=== PATIENT | female | born 1955 | race Caucasian/White ===

== ENCOUNTER 2023-11-12 13:23 | Emergency (ER) | payer OTHER ==
[~2023-11-12] VITALS: Ht 170.2 cm; Wt 61.0 kg
[2023-11-12 15:30] VITALS: PULSE 78; RESP 20; TEMP 98.9; O2SAT 94
[2023-11-12] MEDS: ETOMIDATE (2MG/ML) 20ML VIAL IV ONE (15:55)
[2023-11-12] MEDS ORDERED: HYDR-4902 PO (16:44)
[2023-11-12 17:00] VITALS: BP 163/91; PULSE 67; RESP 16; O2SAT 96
== END 2023-11-12 17:21 | disposition home or self-care (01) ==
LOC: ER 13:23
DX: S43.004A Unspecified dislocation of right shoulder joint, initial encounter (principal); S42.261A Displaced fracture of lesser tuberosity of right humerus, initial encounter for closed fracture; W18.09XA Striking against other object with subsequent fall, initial encounter; Y93.89 Activity, other specified; Y92.89 Other specified places as the place of occurrence of the external cause; Y99.8 Other external cause status
CPT/HCPCS: 23650; 73020; 73030; 73060